=== PATIENT | male | born 1990 | race Caucasian/White ===

== ENCOUNTER → 2018-02-27 10:11 | Outpatient (CLI) | payer OTHER, SELFPAY ==
--- NOTE | 2018-02-27 10:15 | DI.RAD.S_ITS ---
PROCEDURE: XR CHEST 2V INDICATIONS: cough, fever TECHNIQUE: 2 views of the chest were acquired. COMPARISON: None. FINDINGS: Surgical changes and devices: None. Lungs and pleura: No pleural effusions or pneumothorax. Lungs are clear. Mediastinum: Mediastinal contours are normal. Heart size is normal. Bones and chest wall: No suspicious bony abnormalities. Soft tissues appear unremarkable. IMPRESSION: No acute cardiopulmonary process is seen. If there is clinical concern for a developing pulmonary process, a short-term followup chest series (with PA and lateral views, performed in deep inspiration) is suggested for further evaluation. Dictated by: Hayes Frances M.D. on 02/27/2018 at 9:44 Approved by: Hayes Frances M.D. on 02/27/2018 at 9:44
== END ==
PROVIDERS: PCP Family Medicine; Visit Provider Physician Assistant
DX: R05 Cough (principal); R50.9 Fever, unspecified
CPT/HCPCS: 71046

== ENCOUNTER 2018-03-11 02:54 | Emergency (ER) | payer OTHER, SELFPAY ==
[2018-03-11 03:05] VITALS: BP 159/96; PULSE 70; RESP 16; TEMP 37.1; O2SAT 100; BMI 27.7
--- NOTE | 2018-03-11 03:15 | ED.CHESTPAIN ---
HPI - Chest Pain General Chief Complaint: Chest Pain Stated Complaint: Chest Pain Time Seen by Provider: 03/11/18 03:15 Source: patient Mode of arrival: EMS Limitations: no limitations History of Present Illness HPI narrative: Patient is a 27-year-old male brought in by EMS for evaluation of chest pain. Patient states that it started while he was at work. He states that it does get worse with palpation and movement and taking big deep breath. He states that he was seen here in the emergency department in the past for very similar symptoms. He also reports that he has been coughing quite a bit recently. No shortness of breath. Related Data Previous Rx's Medication Instructions Recorded ondansetron 8 mg disintegrating 8 mg PO BID PRN #20 tab 02/27/18 tablet Allergies Allergy/AdvReac Type Severity Reaction Status Date / Time No Known Drug Allergies Allergy Verified 02/27/18 08:57 Review of Systems Constitutional Denies chills, Denies fatigue, Denies fever(s) and Denies headache(s) ENT Ears, Nose, Mouth, and Throat: Denies dizziness and Denies headache(s) Cardiovascular Reports chest pain, Denies edema, Denies palpitations and Denies dyspnea Respiratory Denies dyspnea Gastrointestinal Gastrointestinal: Denies abdominal pain, Denies nausea and Denies vomiting Genitourinary Denies dysuria Musculoskeletal Denies myalgias and Denies arthralgias Integumentary/Breasts Denies lesions and Denies rash Neurologic Denies dizziness and Denies headache(s) Endocrine Denies fatigue and Denies palpitations Hematologic/Lymphatic Comments: Not on anticoagulation PFSH Medical History Healthy adult (Acute) Surgical History No pertinent past surgical history (Acute) Social History Smoking Status: Never smoker Exam Initial Vital Signs Initial Vital Signs: Vital Signs Temperature 98.7 F 03/11/18 03:05 Pulse Rate 70 03/11/18 03:05 Respiratory Rate 16 03/11/18 03:05 Blood Pressure 159/96 H 03/11/18 03:05 Pulse Oximetry 100 03/11/18 03:05 Const General: cooperative, healthy appearing, comfortable, well developed, well groomed and No acute distress Orientation: alert, awake and oriented x3 HENMT Head: normal to inspection and normocephalic Chest Chest: tenderness (Lower sternum and just left to the sternum and right the sternum. Improves removed laterally.) Resp Effort & Inspection: normal respiratory effort Auscultation: clear to auscultation bilaterally Cardio Rate: regular rate Rhythm: regular rhythm Pulses: radial pulses present Skin Lesions: no lesions Rashes: no rashes Neuro General: alert, awake and oriented x3 Extrem General: normal to inspection and capillary refill normal Psych Appearance: grossly normal and well kempt Scores HEART Score Heart Score history: Slightly Suspicious Heart Score EKG: Normal Heart Score Age: < 45 years old Heart Score risk factors: No known risk factors Heart Score troponin: < or = to normal limit Heart Score Total: 0 PERC Score Age greater than or equal to 50 years: No Heart rate greater than or equal to 100 bpm: No Room Air O2 Sat less than 95%: No Unilateral leg swelling: No Recent trauma or surgery: No Hemoptysis: No Prior PE or DVT: No Hormone Use: No Total PERC Score: 0 Course Orders Ordered: ED Orders 03/11/18 EKG-12 Lead Stat Vital Signs - 8 hr 03/11/18 03:05 Temperature 98.7 F Pulse Rate 70 Respiratory Rate 16 Blood Pressure 159/96 H Pulse Oximetry 100 MDM - Chest Pain ECG Data Attestation: I personally reviewed and interpreted this ECG as follows: Prior ECG tracings: not available for review Interpretation: Sinus rhythm Ventricular rate is 63 Incomplete right bundle branch block Normal QTC No ST T wave changes MDM Narrative Medical decision making narrative: Nonischemic EKG. Patient is a heart score of 0. Has reproducible tenderness that brought him into the emergency department when he is palpated along the lower sternum and just left to right of midline. It does improve his removed laterally. Improved since he moved inferior and superior to this. He states that this pain is what brought him into the emergency department. I feel that ACS is unlikely. Low risk for PE. Will hold on further workup for now. We did discuss costochondritis with the patient. He was given return precautions. He expressed understanding and agreement plan. Discharge Plan Departure Patient Disposition: Home Clinical Impression: Acute costochondritis Discharge Date/Time: 03/11/18 03:38 Interventions: ED Discharge Assessment Last Done: 03/11/18 03:41 Instructions: Costochondritis Activity Restrictions/Additional Instructions: Recommend that you start taking anti-inflammatory such as Motrin or Naprosyn. Contact your primary care doctor for follow-up. Return to the emergency department for any new or worsening symptoms Prescriptions: No Action ondansetron 8 mg tablet,disintegrating 8 mg PO BID PRN (Reason: nausea and vomiting) Qty: 20 RF: 0 Stand Alone Forms: Work Release Note
== END 2018-03-11 03:38 | disposition home or self-care (01) ==
PROVIDERS: Emergency Provider Emergency Medicine; PCP Family Medicine
DX: M94.0 Chondrocostal junction syndrome [Tietze] (principal)
CPT/HCPCS: 93005; 99282